=== PATIENT | male | born 1960 | race Caucasian/White ===

== ENCOUNTER 2019-12-25 19:11 | Emergency (ER) | payer MEDICAID ==
[~2019-12-25] VITALS: Ht 170.2 cm; Wt 102.7 kg
[2019-12-25 19:14] VITALS: Ht 170.2 cm; Wt 102.7 kg
[2019-12-25 21:25] VITALS: BP 149/86
== END 2019-12-25 21:25 | disposition home or self-care (01) ==
LOC: ED 19:11
DX: M54.42 Lumbago with sciatica, left side (principal); I10 Essential (primary) hypertension; E11.9 Type 2 diabetes mellitus without complications
CPT/HCPCS: J1885